=== PATIENT | male | born 1980 | race Caucasian/White ===

== ENCOUNTER 2021-10-15 10:12 | Outpatient (CLI) | payer OTHER | END 2021-10-15 10:13 | disposition home or self-care (01) | LOC: DTY/OP 10:12 | PROVIDERS: ATTEND Specialist | DX: E66.01 Morbid (severe) obesity due to excess calories (principal) | CPT/HCPCS: 97802 ==

== ENCOUNTER 2021-11-11 09:47 | Outpatient (CLI) | payer OTHER | END 2021-11-11 09:48 | disposition home or self-care (01) | LOC: DTY/OP 09:47 | PROVIDERS: ATTEND Specialist | DX: E66.01 Morbid (severe) obesity due to excess calories (principal) | CPT/HCPCS: 97802 ==

== ENCOUNTER 2021-12-09 09:59 | Outpatient (CLI) | payer OTHER | END 2021-12-09 10:00 | disposition home or self-care (01) | LOC: DTY/OP 09:59 | PROVIDERS: ATTEND Specialist | DX: E66.01 Morbid (severe) obesity due to excess calories (principal) | CPT/HCPCS: 97802 ==

== ENCOUNTER 2022-01-06 09:46 | Outpatient (CLI) | payer OTHER | END 2022-01-06 09:47 | disposition home or self-care (01) | LOC: DTY/OP 09:46 | PROVIDERS: ATTEND Specialist | DX: E66.01 Morbid (severe) obesity due to excess calories (principal) | CPT/HCPCS: 97802 ==

== ENCOUNTER 2022-04-29 14:21 | Outpatient (CLI) | payer OTHER ==
[2022-04-29 16:10] LABS: #Eosinphils 0.1 10x3/uL (0.0-0.5); #Monocytes 0.7 10x3/uL (0.0-1.1); %Basophils 0.4 % (0.0-2.0); %Eosinophils 1.4 % (0.0-6.0); %Lymphocytes 34.4 % (18.0-47.0); %Monocytes 7.4 % (0.0-10.0); %Neutrophils 56.2 % (40.0-75.0); Hemoglobin 14.2 g/dL (13.5-17.5); Mean Corpuscular HGB CONC 32.7 g/dL (32.0-36.0); Mean Corpuscular Hemoglobin 27.5 pg (27.0-33.0); Mean Corpuscular Volume 84.1 fl (81.2-95.1); Mean Platelet Volume 12.7 fl (7.4-10.4); Platelet Count 146 10x3/uL (150-450); RBC Distribution Width 13.6 % (11.5-14.5); Red Blood Cell (RBC) Count 5.16 10x6/uL (4.32-5.72)
[2022-04-29 16:33] LABS: Anion Gap 17 mmol/L (10-20); BUN (Urea Nitrogen) 9 mg/dL (8.9-20.6); Calc. Creatinine Clearance 0 mL/min (70-130); Calcium 9.8 mg/dL (7.8-10.44); Carbon Dioxide 24 mmol/L (22-29); Chloride 102 mmol/L (98-107); Estimated GFR 115; Glucose 82 mg/dL (70-105); Potassium 4.3 mmol/L (3.5-5.1); Sodium 139 mmol/L (136-145)
[2022-04-29 20:13] LABS: Hemoglobin A1c 5.2 % (4.0-6.0)
== END 2022-04-29 14:22 | disposition home or self-care (01) ==
LOC: LABBT 14:21
PROVIDERS: ATTEND Specialist
DX: Z01.818 Encounter for other preprocedural examination (principal); K21.9 Gastro-esophageal reflux disease without esophagitis; E66.01 Morbid (severe) obesity due to excess calories; G47.30 Sleep apnea, unspecified; I10 Essential (primary) hypertension
CPT/HCPCS: 80048; 83036; 85025; 93005; 93010

== ENCOUNTER 2022-04-29 15:00 | Inpatient (IN) | payer OTHER ==
[2022-04-29 10:48] VITALS: BMI 52.0
[2022-04-30] MEDS ORDERED: Bupivacaine/Epinephrine 0.25% 30 ML VIAL ONE (06:38)
[2022-04-30] MEDS ORDERED: Scopolamine 1.5 mg/72 hour Patch ONE (06:50)
[2022-04-30] MEDS ORDERED: Ketorolac Tromethamine 30 MG/ML VIAL ONE (06:50)
[2022-04-30] MEDS ORDERED: Heparin 5,000 UNITS/ML VIAL ONE (06:50)
[2022-04-30] MEDS ORDERED: cefOXitin 2 GM VIAL ONE (06:52)
[2022-04-30] MEDS ORDERED: Midazolam HCl 2 mg/2 ml Vial ONE (06:52)
[2022-04-30] MEDS ORDERED: Sodium Chloride 0.9% 100 ML ONE (06:52)
[2022-04-30] MEDS ORDERED: fentaNYL PF 100 MCG/2 ML SYRINGE ONE (06:52)
[2022-04-30] MEDS ORDERED: PROPOFOL 200 MG/20 ML VIAL ONE (07:42)
[2022-04-30] MEDS ORDERED: GLYCOPYRROLATE/PF 0.2 MG/ML VIAL ONE (07:42)
[2022-04-30] MEDS ORDERED: Dexamethasone 20 MG/5 ML VIAL ONE (07:42)
[2022-04-30] MEDS ORDERED: Ondansetron PF 4 MG/2 ML Vial ONE (07:42)
[2022-04-30] MEDS ORDERED: Rocuronium Bromide 10 MG/ML (10ML VIAL) ONE (07:42)
[2022-04-30 08:03] LABS: SARS-CoV-2 NAA Rapid Test DETECTED (NotDetected)
[2022-04-30] MEDS ORDERED: Meperidine HCl/PF 25 MG/ML VIAL SLOW IVP PRN (08:30)
[2022-04-30] MEDS ORDERED: Promethazine HCl 25 MG/ML VIAL IM PRN (08:30)
[2022-04-30] MEDS ORDERED: Promethazine HCl 25 MG/ML VIAL IVPB PRN (08:30)
[2022-04-30] MEDS ORDERED: Ondansetron HCl/PF 4 MG/2 ML Vial IVP PRN (08:30)
[2022-04-30] MEDS ORDERED: SUGAMMADEX SODIUM 200 MG/2 ML VIAL ONE (09:04)
[2022-04-30] MEDS ORDERED: FENTANYL 50 MCG/ML 1 ML VIAL ONE ×3 (10:31→11:22)
[2022-04-30] MEDS ORDERED: Promethazine HCl 25 MG/ML VIAL ONE (10:31)
[2022-04-30] MEDS ORDERED: diphenhydrAMINE 50 MG/ML VIAL IVP PRN (10:56)
[2022-04-30] MEDS ORDERED: hydrALAZINE 20 MG/ML VIAL SLOW IVP PRN (10:56)
[2022-04-30] MEDS ORDERED: Morphine 4 MG/ML VIAL SLOW IVP PRN (11:16)
[2022-04-30] MEDS ORDERED: Albuterol 200 PUFF (6.7GM INHALER) INH PRN (11:19)
[2022-04-30] MEDS: D5 1/2 NS w/20 mEq KCL 1,000 ML IV SCH ×3 (12:38→21:21)
[2022-04-30] MEDS: Ketorolac Tromethamine 30 MG/ML VIAL IVP SCH ×3 (12:38→22:47)
[2022-04-30] MEDS: Ondansetron PF 4 MG/2 ML Vial IVP PRN ×2 (15:19→22:47)
[2022-04-30] MEDS: Morphine 4 MG/ML VIAL SLOW IVP PRN ×2 (15:19→22:47)
[2022-04-30] MEDS ORDERED: Enoxaparin Sodium 40 MG/0.4 ML SYRINGE SC SCH (21:00)
[2022-04-30 23:52] VITALS: TEMP 98.1
[2022-05-01] MEDS: D5 1/2 NS w/20 mEq KCL 1,000 ML IV SCH (04:15)
[2022-05-01] MEDS: Ketorolac Tromethamine 30 MG/ML VIAL IVP SCH (04:15)
[2022-05-01 07:23] LABS: #Basophils 0.1 thou/uL (0.0-0.2); #Lymphocytes 1.5 thou/uL (1.20-3.40); #Neutrophils 7.6 thou/uL (1.40-6.50); %Eosinophils 0.2 % (0.0-10.0); %Lymphocytes 14.3 % (21.0-51.0); %Monocytes 9.9 % (0.0-10.0); %Neutrophils 74.6 % (42.0-75.0); Hemoglobin 14.1 g/dL (14.0-18.0); Mean Corpuscular HGB CONC 31.9 g/dL (32.0-36.0); Mean Corpuscular Hemoglobin 28.3 pg (27.0-31.0); Mean Corpuscular Volume 88.8 fl (78.0-98.0); Mean Platelet Volume 10.4 fL (7.4-10.4); Platelet Count 190 10x3/uL (130-400); RBC Distribution Width 12.8 % (11.5-14.5); Red Blood Cell (RBC) Count 4.98 mill/uL (4.70-6.10); White Blood Cell (WBC) Count 10.2 10x3/uL (4.8-10.8)
[2022-05-01 07:46] LABS: Anion Gap 13 mmol/L (10-20); BUN (Urea Nitrogen) 8 mg/dL (8.9-20.6); Calc. Creatinine Clearance 312 mL/min (70-130); Calcium 9.3 mg/dL (7.8-10.44); Carbon Dioxide 23 mmol/L (22-29); Chloride 106 mmol/L (98-107); Estimated GFR 113; Glucose 103 mg/dL (70-105); Potassium 4.5 mmol/L (3.5-5.1); Sodium 137 mmol/L (136-145)
[2022-05-01] MEDS: Hydrocodone-Acetamin 15 ML UDCUP PO PRN ×2 (07:47→11:43)
[2022-05-01] MEDS ORDERED: FLU VACC QS2022-23(6MOS UP)/PF 60 MCG/0.5 ML SYRINGE IM ONE (09:00)
[2022-05-01] MEDS ORDERED: Pantoprazole 40 MG VIAL IVP SCH (09:00)
[2022-05-01 11:51] VITALS: BP 130/80
== END 2022-05-01 14:20 | disposition home or self-care (01) | DRG 619 ==
LOC: SURG A 04-30 05:53
PROVIDERS: ADMIT Specialist; ATTEND Specialist
PROC: 0D164ZA Bypass Stomach to Jejunum, Percutaneous Endoscopic Approach (ICD-10-PCS; principal; 2022-04-30)
PROC: 8E0ZXY6 Isolation (ICD-10-PCS; 2022-04-30)
DX: E66.01 Morbid (severe) obesity due to excess calories (principal); U07.1 COVID-19; Z68.43 Body mass index [BMI] 50.0-59.9, adult; Z88.0 Allergy status to penicillin; I10 Essential (primary) hypertension; Z79.899 Other long term (current) drug therapy; K21.9 Gastro-esophageal reflux disease without esophagitis; G47.30 Sleep apnea, unspecified
CPT/HCPCS: 36415; 80048; 83036; 85025; 93005; 93010; A4649; C1713; C1889; C9113; J0694; J1100; J1644; J1650; J1885; J2250; J2270; J2405; J2550; J2704; J3010; J3480; J3490; U0002